=== PATIENT | female | born 1940 | race Caucasian/White ===

== ENCOUNTER 2020-07-25 14:15 | Emergency (ER) | payer MEDICARE, MEDICAID ==
[~2020-07-25] VITALS: Ht 167.6 cm; Wt 95.0 kg
[~2020-07-25 14:15] MED LIST: HYDR-3241 PO; LEVO112T4 PO; LISI-170 PO; METO-99 PO; NAPROXEN PO; ONDA4TAB13 SL; TEMA15CA PO
[2020-07-25] MEDS ORDERED: SODIUM CHLORIDE FLUSH 10ML SYR IVF ONE (14:30)
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
[2020-07-25 14:39] LABS: BASOPHILS % (AUTO) 1 % (0-1); EOSINOPHILS % (AUTO) 4 % (1-7); LYMPHOCYTES % (AUTO) 9 % (22-44); MEAN CORPUSCULAR HEMOGLOBIN 32.2 pg (27.0-34.8); MEAN CORPUSCULAR HGB CONC 33.7 g/dL (32.4-35.8); MONOCYTES % (AUTO) 10 % (2-9); NEUTROPHILS % (AUTO) 76 % (42-75); PLATELET COUNT 180 x10^3/uL (130-400); RED BLOOD COUNT 4.92 x10^6/uL (3.82-5.3); RED CELL DISTRIBUTION WIDTH 14.4 % (9.6-15.2)
[2020-07-25 14:42] LABS: MD NO
[2020-07-25 14:48] LABS: ALBUMIN 3.5 g/dL (3.4-5.0); ANION GAP 6 mmol/L (5-15); CALCIUM 8.9 mg/dL (8.5-10.1); CHLORIDE 109 mmol/L (98-107)
[2020-07-25 14:54] LABS: ALANINE AMINOTRANSFERASE 13 U/L (12-78); ALKALINE PHOSPHATASE 88 U/L (45-117); BILIRUBIN,TOTAL 0.5 mg/dL (0.2-1.0); CREATININE 1.25 mg/dL (0.55-1.02); TROPONIN I < 0.015 ng/mL (0.000-0.045)
--- NOTE | 2020-07-25 15:15 | NUR ---
UA OBTAINED VIA STRAIGHT CATH. PT TOLERATED WELL. PT INCONTINENT OF URINE AND STOOL. PT CLEANED.
[2020-07-25] MEDS ORDERED: ALBUTEROL/IPRATROPIUM 2.5MG/0.5MG, 3 ML ONE (15:25)
[2020-07-25] MEDS ORDERED: ALBUTEROL SULFATE 2.5 MG/3 ML NPPB ONE (15:30)
[2020-07-25] MEDS ORDERED: ALBUTEROL SULFATE 2.5MG/0.5ML ONE (15:34)
[2020-07-25 15:59] LABS: MICROSCOPIC INDICATED
--- NOTE | 2020-07-25 16:08 | NUR ---
PT REFUSING IV AT THIS TIME AND IS STATED THAT SHE IS NOT GOING TO BE ADMITTED. EDUCATION PROVIDED.
--- NOTE | 2020-07-25 16:50 | NUR ---
DR MONROE AT BEDSIDE, PT REFUSING HOSPITAL ADMISSION, POC DISCUSSED AND QUESTIONS ANSWERED.
[2020-07-25 17:00] VITALS: BP 154/80
--- NOTE | 2020-07-25 17:15 | NUR ---
DISCHARGE ORDERS RECEIVED. PT AWAITING RIDE FROM SON.
[2020-07-25 17:26] LABS: FREE T4 (FREE THYROXINE) 1.62 ng/dL (0.76-1.46)
--- NOTE | 2020-07-25 18:26 | NUR ---
DISCHARGE INSTRUCTIONS REVIEWED WITH PT AND SON. ALL QUESTIONS ANSWERED AT THIS TIME.
== END 2020-07-25 18:28 | disposition home or self-care (01) ==
LOC: ED 16:00
DX: M17.11 Unilateral primary osteoarthritis, right knee (principal); N30.00 Acute cystitis without hematuria; M62.81 Muscle weakness (generalized); I12.9 Hypertensive chronic kidney disease with stage 1 through stage 4 chronic kidney disease, or unspecified chronic kidney disease; N18.2 Chronic kidney disease, stage 2 (mild); G89.29 Other chronic pain; E03.9 Hypothyroidism, unspecified; I48.91 Unspecified atrial fibrillation; R06.00 Dyspnea, unspecified
CPT/HCPCS: 36415; 71045; 73564; 80053; 81001; 83880; 84439; 84443; 84481; 84484; 85025; 87077; 87086; 93005; 94640; 99285; J7512; J7613; 87186